=== PATIENT | female | born 1980 | race Caucasian/White ===

== ENCOUNTER 2020-09-21 21:30 | Inpatient (IN) | payer OTHER ==
[2020-09-21 22:14] VITALS: BMI 17.6
[2020-09-21 23:43] LABS: BASO % 0.9 % (0-2.0); EOS % 0.6 % (0-4.5); HEMOGLOBIN 12.6 GM/dL (10.7-15.3); LYMPH % 19.7 % (8-40); MCH 28.7 pg (25.7-33.7); MEAN CELL VOLUME 84.5 fl (80-96); MEAN PLT VOLUME 8.2 fl (7.5-11.1); NEUT % 65.8 % (42.8-82.8); PLATELET COUNT 199 K/MM3 (134-434); RBC 4.37 M/mm3 (3.60-5.2); RDW 13.3 % (11.6-15.6); WHITE BLOOD COUNT 4.9 K/mm3 (4.0-10.0)
[2020-09-21 23:50] LABS: CHLORIDE 107 mmol/L (98-107); POTASSIUM 4.1 mmol/L (3.5-5.1); SODIUM 137 mmol/L (136-145)
[2020-09-21 23:52] LABS: CALCIUM 9.3 mg/dL (8.5-10.1)
[2020-09-21 23:53] LABS: ALBUMIN 3.6 g/dl (3.4-5.0); ANION GAP 5 MMOL/L (8-16); BLOOD UREA NITROGEN 7.3 mg/dL (7-18); CO2 25 mmol/L (21-32); GLUCOSE,RANDOM 86 mg/dL (74-106); MAGNESIUM 2.2 mg/dL (1.8-2.4)
[2020-09-21 23:56] LABS: CREATININE 0.7 mg/dL (0.55-1.3); INR 0.88 (0.83-1.09); PROTHROMBIN TIME (PATIENT) 10.9 SEC (9.7-13.0); SGOT/AST 57 U/L (15-37); SGPT/ALT 24 U/L (13-61)
[2020-09-21 23:58] LABS: BILIRUBIN,TOTAL 0.5 mg/dL (0.2-1); TOT PROT 9.7 g/dl (6.4-8.2)
[2020-09-21 23:59] LABS: ALK PHOS 87 U/L (45-117)
[2020-09-22] MEDS ORDERED: SODIUM CHLORIDE 1,000 ML IV STA ×2 (02:24→12:31)
[2020-09-22 06:59] LABS: BASO % 1.3 % (0-2.0); EOS % 1.5 % (0-4.5); HEMATOCRIT 33.2 % (32.4-45.2); HEMOGLOBIN 11.4 GM/dL (10.7-15.3); LYMPH % 31.4 % (8-40); MCH 28.8 pg (25.7-33.7); MCHC 34.4 g/dl (32.0-36.0); MEAN CELL VOLUME 83.6 fl (80-96); MEAN PLT VOLUME 7.7 fl (7.5-11.1); MONO % 10.9 % (3.8-10.2); NEUT % 54.9 % (42.8-82.8); PLATELET COUNT 197 K/MM3 (134-434); RBC 3.98 M/mm3 (3.60-5.2); RDW 13.2 % (11.6-15.6)
[2020-09-22 07:20] LABS: POTASSIUM 3.8 mmol/L (3.5-5.1)
[2020-09-22 07:22] LABS: ALBUMIN 2.9 g/dl (3.4-5.0); CALCIUM 8.3 mg/dL (8.5-10.1)
[2020-09-22 07:23] LABS: BLOOD UREA NITROGEN 7.1 mg/dL (7-18)
[2020-09-22 07:25] LABS: CREATININE 0.7 mg/dL (0.55-1.3)
[2020-09-22 07:26] LABS: PHOSPHOROUS 3.4 mg/dL (2.5-4.9)
[2020-09-22 07:27] LABS: BILIRUBIN,TOTAL 0.4 mg/dL (0.2-1); TOT PROT 8.1 g/dl (6.4-8.2)
[2020-09-22] MEDS ORDERED: ENOXAPARIN NA (PORCINE) 40 MG/0.4 ML DISP.SYRIN SQ SCH (10:00)
[2020-09-22 16:40] VITALS: BP 110/60; PULSE 68; TEMP 98.1
== END 2020-09-22 17:00 | disposition home or self-care (01) | DRG 315 ==
LOC: JER 21:30 → JERBED 09-22 00:17
PROVIDERS: ADMIT Hospitalist; ATTEND Internal Medicine
DX: I95.9 Hypotension, unspecified (principal); B20 Human immunodeficiency virus [HIV] disease; E44.0 Moderate protein-calorie malnutrition; Z68.1 Body mass index [BMI] 19.9 or less, adult; R63.8 Other symptoms and signs concerning food and fluid intake; R53.1 Weakness; Z59.0 Homelessness; E86.0 Dehydration; E88.09 Other disorders of plasma-protein metabolism, not elsewhere classified; R00.0 Tachycardia, unspecified
CPT/HCPCS: 36415; 70450-TC; 71045-TC-FY; 80053; 80307; 82550; 82553; 82607; 82746; 83605; 83735; 84100; 84443; 84484; 84703; 85025; 85610; 85730; 86359; 86360; 87536; 93005; 93010; 99285-25; C9803; U0003